=== PATIENT | female | born 1970 | race Caucasian/White ===

== ENCOUNTER 2020-06-09 11:40 | Emergency (ER) | payer OTHER ==
[~2020-06-09 11:40] MED LIST: DILANTIN 100 M100 MG PO; DILANTIN100 MG PO
[2020-06-09 14:33] LABS: HEMOGLOBIN 15.1 gm/dl (12.3-15.3); RED BLOOD COUNT 4.96 M/UL (4.00-5.10); WHITE BLOOD COUNT 6.3 K/UL (4.5-11.0)
[2020-06-09 14:52] LABS: BUN/CREATININE RATIO 11 (0-10)
[2020-06-09] MEDS ORDERED: DILANTIN100 MG PO (15:29)
== END 2020-06-09 15:42 | disposition home or self-care (01) ==
LOC: ER1 11:40
PROVIDERS: Physician Assistant
DX: G40.909 Epilepsy, unspecified, not intractable, without status epilepticus (principal); F17.200 Nicotine dependence, unspecified, uncomplicated; Z76.0 Encounter for issue of repeat prescription; Z88.0 Allergy status to penicillin
CPT/HCPCS: 80053; 80185; 81001; 85025; 99282

== ENCOUNTER 2020-11-26 03:31 | Emergency (ER) | payer OTHER ==
[~2020-11-26] VITALS: Ht 165.1 cm; Wt 63.5 kg
[2020-11-26 06:22] LABS: HEMOGLOBIN 14.2 gm/dl (12.3-15.3); RED BLOOD COUNT 4.68 M/UL (4.00-5.10); WHITE BLOOD COUNT 8.3 K/UL (4.5-11.0)
[2020-11-26 06:40] LABS: BUN/CREATININE RATIO 11 (0-10)
[2020-11-26] MEDS ORDERED: DILANTIN100 MG PO (09:18)
== END 2020-11-26 11:11 | disposition home or self-care (01) ==
LOC: ER1 03:31
PROVIDERS: Physician Assistant
DX: G40.909 Epilepsy, unspecified, not intractable, without status epilepticus (principal); Z88.0 Allergy status to penicillin; Z88.8 Allergy status to other drugs, medicaments and biological substances
CPT/HCPCS: 70450; 71045; 80053; 80307; 81001; 83735; 85025; 87086; 93005; 96374; 99284; Q2009